=== PATIENT | male | born 1990 | race Caucasian/White ===

== ENCOUNTER 2023-02-23 16:19 | Emergency (ER) | payer BC, SELFPAY ==
[2023-02-23] VITALS (7 sets, daily range): BP systolic 141–156; BP diastolic 79–99; PULSE 78–94; RESP 13–20; O2SAT 97–100; BMI 25.8
--- NOTE | 2023-02-23 16:36 | XR_ITS ---
The [address] [address] Patient Name: DARIAN PELAEZ MRN: [id number] date: 1990 Sex: M Assigned Patient Location: ER Current Patient Location: ER Accession/Order Number: [id number] Exam Date: 02/23/2023 17:15 Report Date: 02/23/2023 17:43 At the request of: WALLACE CARRANZA Procedure: XR ribs LT min 3V w CXR1V Ribs EXAM: XR ribs LT min 3V w CXR1V HISTORY: c/o pain to area with bruise COMPARISON: None. TECHNIQUE: Chest, single view. Left rib series with 4 images obtained. FINDINGS: Lungs/pleura: No consolidation, effusion, or pneumothorax. Bones: No acute abnormality identified. XR/XR ribs LT min 3V w CXR1V IMPRESSION: No acute displaced rib fracture. No acute process. Electronically authenticated by: HILARIO HORTON Date: 02/23/2023 17:43
--- NOTE | 2023-02-23 18:21 | ECG_ITS ---
[facility] Test Date: 2023-02-23 Pat Name: DARIAN PELAEZ Department: Room: - Gender: Male Director Of Catering: : 1990 Requested By: SULEIMAN SANZ Order Number: [id number] Reading MD: SULEIMAN SANZ Measurements Intervals [place] Rate: 94 P: 56 SD: 138 QRS: 58 QRSD: 84 T: 16 QT: 348 QTc: 399 Interpretive Statements 1100 Sinus rhythm Non-Specific T wave inversion in III 9130 borderline ECG No previous ECG available for comparison Electronically Signed On 02-24-2023 5:20:39 EDT by SULEIMAN SANZ
--- NOTE | 2023-02-23 18:53 | ED.GENADUL1 ---
Documented by User: CHICO Farley 02/23/23 19:05 HPI - General Adult General Chief complaint: Chest Pain Stated complaint: FLANK PAIN Time Seen by Provider: 02/23/23 18:44 Source: patient Mode of arrival: walk-in Limitations: no limitations History of Present Illness HPI narrative: patient is a 32-year-old male that presents to the emergency department for the evaluation of left-sided chest wall pain that began last night. He denies fevers, chills, cough or congestion. he denies any injury or trauma. Pain is worse with movement and deep breathing. He has no history of heart or lung problems, no history of deep vein thrombosis or PE. He is on no home medications. He vapes daily. he denies abdominal pain, nausea, vomiting. Related Data Previous Rx's Medication Instructions Recorded ketorolac 10 mg tablet 10 mg PO TID PRN pain #10 tabs 02/23/23 methocarbamol 750 mg tablet 750 mg PO TID PRN pain #20 tabs 02/23/23 methylprednisolone 4 mg tablets in See Rx Instructions .Route 02/23/23 a dose pack (Medrol ([place]yd)) .COMPLEX #1 packet Allergies Allergy/AdvReac Type Severity Reaction Status Date / Time No Known Drug Allergies Allergy Verified 02/23/23 16:35 Review of Systems ROS Constitutional Denies: fever or chills Ears, nose, mouth, and throat Denies: throat pain or neck pain Cardiovascular Reports: chest pain Respiratory Denies: shortness of breath or cough Gastrointestinal Denies: abdominal pain, nausea or vomiting Genitourinary Denies: painful urination Musculoskeletal Denies: back pain or neck pain Integumentary/Breast Denies: rash Neurological Denies: headache PFSH PFSH Social History Smoking status: Light tobacco smoker Exam Narrative Exam Narrative: Gen.: Awake, alert, in no distress Head: Normocephalic, atraumatic ENT: Moist mucous membranes Respiratory: No respiratory distress, lungs clear bilaterally, pain with inspiration and movement of the left chest wall, no crepitance or rashes noted. Minimal tenderness of the left lateral chest wall Cardio: Regular rate and rhythm Gastrointestinal: Abdomen is soft, nondistended and nontender to palpation Extremities: Moves extremities equally, no injuries noted Psych: Normal mood and affect Neuro: No focal neuro deficit Skin: Warm, dry, intact Constitutional Vital Signs, click to edit/add: Last Vital Signs Pulse 78 02/23/23 19:09 Resp 18 02/23/23 19:09 BP 141/79 02/23/23 19:09 Pulse Ox 98 02/23/23 19:09 O2 Del Method Room Air 02/23/23 18:58 Course Vital Signs Vital signs: Vital Signs Pulse Rate 92 H 02/23/23 16:31 Respiratory Rate 20 02/23/23 16:31 Blood Pressure 156/99 H 02/23/23 16:31 Pulse Oximetry 100 02/23/23 16:31 Oxygen Delivery Method Room Air 02/23/23 16:31 Pulse Rate 78 02/23/23 19:09 Respiratory Rate 18 02/23/23 19:09 Blood Pressure 141/79 02/23/23 19:09 Pulse Oximetry 98 02/23/23 19:09 Oxygen Delivery Method Room Air 02/23/23 18:58 Medical Decision Making MDM Narrative Medical decision making narrative: PERC score of zero with no tachycardia or hypoxia. Initial vital signs obtained from triage stated that the patient was on a nasal cannula, this was in error and the patient has been on room air throughout his stay in the Emergency Room with no hypoxia or tachycardia. He has no hemoptysis, leg swelling or history of deep vein thrombosis or PE. Chest x-ray with rib x-ray show no evidence of acute process. EKG is unremarkable as well. Patient will be treated for chest wall pain versus pleurisy. He is given NSAIDs, Medrol Dosepak and muscle relaxants. Follow-up with PCP and return to the emergency department if symptoms change or worsen. Medical Records Medical records reviewed: Yes I reviewed the patient's medical records Lab Data Lab results reviewed: Yes I reviewed the patient's lab results Imaging Data Chest x-ray: Attestation: I have reviewed the pertinent imaging results. Radiologist's impression: Procedure: XR ribs LT min 3V w CXR1V Ribs EXAM: XR ribs LT min 3V w CXR1V HISTORY: c/o pain to area with bruise COMPARISON: None. TECHNIQUE: Chest, single view. Left rib series with 4 images obtained. FINDINGS: Lungs/pleura: No consolidation, effusion, or pneumothorax. Bones: No acute abnormality identified. IMPRESSION: No acute displaced rib fracture. No acute process. Electronically authenticated by: HILARIO TILLEYROSA Date: 02/23/2023 17:43 ECG Data Attestation: I personally reviewed and interpreted this ECG as follows: (normal sinus rhythm at a rate of ninety-four, no acute ST elevation or ectopy. EKG reviewed by attending physician) Discharge Plan Discharge Chief Complaint: Chest Pain Clinical Impression: Acute chest wall pain Patient Disposition: Home, Self-Care Time of Disposition Decision: 18:55 Condition: Good Prescriptions / Home Meds: New ketorolac 10 mg tablet 10 mg PO TID PRN (Reason: pain) Qty: 10 0RF methylprednisolone [Medrol ([place]yd)] 4 mg tablets,dose pack See Rx Instructions .ROUTE .COMPLEX Qty: 1 0RF Rx Instructions: Taper as directed methocarbamol 750 mg tablet 750 mg PO TID PRN (Reason: pain) Qty: 20 0RF Instructions: Chest Wall Pain (ED) Stand Alone Forms: Portal Instructions Referrals: Physician,Non-Staff, MD [Primary Care Provider] - 1 week Discharge Date/Time: 02/23/23 19:10 Documented by User: Corey Foss MD 02/23/23 21:09 HPI - General Adult General Chief complaint: Chest Pain Stated complaint: FLANK PAIN Time Seen by Provider: 02/23/23 18:44 Related Data Previous Rx's Medication Instructions Recorded ketorolac 10 mg tablet 10 mg PO TID PRN pain #10 tabs 02/23/23 methocarbamol 750 mg tablet 750 mg PO TID PRN pain #20 tabs 02/23/23 methylprednisolone 4 mg tablets in See Rx Instructions .Route 02/23/23 a dose pack (Medrol ([place])) .COMPLEX #1 packet Allergies Allergy/AdvReac Type Severity Reaction Status Date / Time No Known Drug Allergies Allergy Verified 02/23/23 16:35 PFSH PFSH Social History Smoking status: Light tobacco smoker Exam Constitutional Vital Signs, click to edit/add: Last Vital Signs Pulse 78 02/23/23 19:09 Resp 18 02/23/23 19:09 BP 141/79 02/23/23 19:09 Pulse Ox 98 02/23/23 19:09 O2 Del Method Room Air 02/23/23 18:58 Course Vital Signs Vital signs: Vital Signs Pulse Rate 92 H 02/23/23 16:31 Respiratory Rate 20 02/23/23 16:31 Blood Pressure 156/99 H 02/23/23 16:31 Pulse Oximetry 100 02/23/23 16:31 Oxygen Delivery Method Room Air 02/23/23 16:31 Pulse Rate 78 02/23/23 19:09 Respiratory Rate 18 02/23/23 19:09 Blood Pressure 141/79 02/23/23 19:09 Pulse Oximetry 98 02/23/23 19:09 Oxygen Delivery Method Room Air 02/23/23 18:58 Medical Decision Making MDM Narrative Medical decision making narrative: PERC score of zero with no tachycardia or hypoxia. Initial vital signs obtained from triage stated that the patient was on a nasal cannula, this was in error and the patient has been on room air throughout his stay in the Emergency Room with no hypoxia or tachycardia. He has no hemoptysis, leg swelling or history of deep vein thrombosis or PE. Chest x-ray with rib x-ray show no evidence of acute process. EKG is unremarkable as well. Patient will be treated for chest wall pain versus pleurisy. He is given NSAIDs, Medrol Dosepak and muscle relaxants. Follow-up with PCP and return to the emergency department if symptoms change or worsen. I, Dr Foss, have reviewed the above progress note and course of action in the ER; agree with the above. I have personally seen and evaluated this patient, gone over history and physical, and discussed disposition and treatment plan with the patient. Discharge Plan Discharge Chief Complaint: Chest Pain Clinical Impression: Acute chest wall pain Patient Disposition: Home, Self-Care Time of Disposition Decision: 18:55 Condition: Good Prescriptions / Home Meds: New ketorolac 10 mg tablet 10 mg PO TID PRN (Reason: pain) Qty: 10 0RF methylprednisolone [Medrol ([place])] 4 mg tablets,dose pack See Rx Instructions .ROUTE .COMPLEX Qty: 1 0RF Rx Instructions: Taper as directed methocarbamol 750 mg tablet 750 mg PO TID PRN (Reason: pain) Qty: 20 0RF Instructions: Chest Wall Pain (ED) Stand Alone Forms: Portal Instructions Referrals: Physician,Non-Staff, MD [Primary Care Provider] - 1 week Discharge Date/Time: 02/23/23 19:10
[2023-02-23] MEDS: HYDROCODONE/ACETAMINOPHEN 5-325 MG TABLET 1 TAB PO (19:03)
[2023-02-23] MEDS: KETOROLAC TROMETHAMINE 10 MG TABLET PO (19:03)
== END 2023-02-23 19:10 | disposition home or self-care (01) ==
PROVIDERS: Emergency Provider Emergency Medicine
DX: R07.89 Other chest pain (principal); F17.210 Nicotine dependence, cigarettes, uncomplicated
CPT/HCPCS: 71101; 93005; 99284